=== PATIENT | male | born 1980 | race Caucasian/White ===

== ENCOUNTER 2019-10-07 20:33 | Emergency (ER) | payer SELFPAY ==
[~2019-10-07] VITALS: Ht 162.6 cm; Wt 74.8 kg
[2019-10-07 20:56] VITALS: Ht 162.6 cm; Wt 74.8 kg
[2019-10-07 22:52] VITALS: BP 132/84
== END 2019-10-07 22:52 | disposition home or self-care (01) ==
LOC: ED 20:33
DX: S62.522A Displaced fracture of distal phalanx of left thumb, initial encounter for closed fracture (principal); W26.9XXA Contact with unspecified sharp object(s), initial encounter; Y93.89 Activity, other specified; Y92.89 Other specified places as the place of occurrence of the external cause; Y99.8 Other external cause status
CPT/HCPCS: A4570